=== PATIENT | female | born 1970 | race Caucasian/White ===

== ENCOUNTER → 2022-10-08 | Outpatient (CLI) | payer BC ==
[~2022-10-08] MED LIST: AMBIEN CR12.5 MG PO; MULTI-DAY VITA1 EACH PO; OMEPRAZOLE10 MG PO; VITAMIN D5000 UNIT PO
== END ==
LOC: RAD 16:38
PROVIDERS: ATTEND Internal Medicine
DX: U07.1 COVID-19 (principal); J06.9 Acute upper respiratory infection, unspecified
CPT/HCPCS: 71046

== ENCOUNTER 2022-10-15 11:32 | Emergency (ER) | payer BC ==
[~2022-10-15] VITALS: Ht 165.1 cm; Wt 72.6 kg
[2022-10-15] MEDS ORDERED: IBUPROFEN 600 MG TAB PO STA (12:17)
[2022-10-15] MEDS ORDERED: HYDROCODONE/APAP 5MG-325MG TAB PO ONE (12:30)
[2022-10-15 12:56] LABS: BASOPHILS # (AUTO) 0.1 (0.0-0.1); BASOPHILS % 1.2 % (0.0-1.0); EOSINOPHILS # (AUTO) 0.2 (0.0-0.4); EOSINOPHILS % 2.9 % (0.0-6.0); HEMATOCRIT 42.2 % (34.2-44.1); HEMOGLOBIN 13.9 g/dL (12.0-16.0); MEAN CORPUSCULAR HEMOGLOBIN 30.3 pg (28-32); MEAN CORPUSCULAR HGB CONC 32.9 g/dL (31-35); MEAN CORPUSCULAR VOLUME 92.1 fL (81-99); MONOCYTES # (AUTO) 0.4 (0.2-0.8); MONOCYTES % 6.1 % (4.4-11.3); NEUTROPHILS # (AUTO) 3.5 (2.1-6.9); NEUTROPHILS % 48.4 % (38.7-80.0); PLATELET COUNT 383 x10e3/uL (140-360); RED BLOOD COUNT 4.58 x10e6/uL (3.6-5.1); RED CELL DISTRIBUTION WIDTH 12.9 % (11.7-14.4)
[2022-10-15 13:11] LABS: ALBUMIN 3.7 g/dL (3.5-5.0); ALBUMIN/GLOBULIN RATIO 1.1 (0.8-2.0); CALCIUM 9.4 mg/dL (8.4-10.2); CLARITY,URINE CLEAR (CLEAR); COLOR,URINE YELLOW (YELLOW); CREATININE, SERUM 0.73 mg/dL (0.57-1.11); KETONES,URINE NEGATIVE (NEGATIVE); LEUKOCYTE ESTERASE ,URINE NEGATIVE (NEGATIVE); NITRITE,URINE NEGATIVE (NEGATIVE); PROTEIN,URINE DIPSTICK NEGATIVE (NEGATIVE); URINE UROBILINOGEN 0.2 mg/dL (0.2 - 1)
[2022-10-15 13:20] LABS: BACTERIA,URINE RARE /HPF; EPITHELIAL CELLS,URINE RARE /LPF
[2022-10-15] MEDS ORDERED: NAPROSYN500 MG PO (13:39)
== END 2022-10-15 14:34 | disposition home or self-care (01) ==
LOC: ER 11:47
DX: N83.201 Unspecified ovarian cyst, right side (principal); D25.9 Leiomyoma of uterus, unspecified; Z88.6 Allergy status to analgesic agent; Z79.1 Long term (current) use of non-steroidal anti-inflammatories (NSAID)
CPT/HCPCS: 36415; 76830; 76856; 80053; 81001; 85025; 99284